=== PATIENT | male | born 1945 | race Caucasian/White ===

== ENCOUNTER 2017-10-18 17:31 | Inpatient (IN) | payer MEDICARE ==
[~2017-10-18] VITALS: Ht 185.4 cm; Wt 82.0 kg
[~2017-10-18 17:31] MED LIST: CIPRO500 MG PO; DOXYCYCL HYC100 MG PO; ECHINACEA80 MG PO; GLUCOS/CHOND1 TAB; LORTAB 7.5 PO; MUCINEX600 MG PO; MULT1 OR; PREDNISONE20 MG PO; PROAIR HFA IN; SAW PALMETTO PO; VIT C
[2017-10-18 18:23] LABS: HEMOGLOBIN 14.5 g/dl (14.0-18.0); IMMATURE GRANULOCYTES 0.5 % (0.0-1.0); MEAN CELL VOLUME 97.7 fL CALC (80.0-100.0); MEAN CORPUSCULAR HGB CONC 33.7 g/L CALC (32.0-36.0); NEUT# 8.13 thou/uL (1.82-7.42); RED BLOOD COUNT 4.4 mill/uL (4.70-6.10); RED CELL DISTRI WIDTH 12.3 % (11.5-15.5)
[2017-10-18 18:43] LABS: PROTHROMBIN TIME 10.7 SECONDS (9.0-12.5)
[2017-10-18 19:02] LABS: ALKALINE PHOSPHATASE 75 u/l (38-126); ANION GAP 19 (6-22 (CALC)); BILIRUBIN, TOTAL 1.1 mg/dL (0.0-1.4); BUN 23 mg/dL (8-23); BUN/CREATININE RATIO 16 (12-20 (CALC)); CALCIUM 9.6 mg/dL (8.4-10.2); CARBON DIOXIDE 20 mmol/l (22-30); CHLORIDE 109 mmol/l (95-108); CREATININE 1.4 mg/dL (0.7-1.3); GFR 50 ML/MIN (>=60 (CALC)); GFR FOR AFR.AMER. > 60 ML/MIN (>=60 (CALC)); GLUCOSE 118 mg/dL (82-115); POTASSIUM 4.3 mmol/l (3.5-5.1); SGOT/AST 28 u/l (19-48); SGPT/ALT 27 u/l (11-66); SODIUM 144 mmol/l (137-146); TOTAL PROTEIN 6.2 g/dL (6.3-8.2)
[2017-10-18 19:11] LABS: MYOGLOBIN 145 ng/mL (0 - 121)
[2017-10-18 22:00] VITALS: BP 115/71
[2017-10-18 22:15] VITALS: BP 98/68
[2017-10-18 22:30] VITALS: BP 106/68
[2017-10-18 22:45] VITALS: BP 101/66
[2017-10-18 23:00] VITALS: BP 102/66
[2017-10-18 23:30] VITALS: BP 82/46
[2017-10-19] VITALS (10 sets, daily range): BP systolic 70–97; BP diastolic 48–69
[2017-10-19 05:32] LABS: HEMATOCRIT 38.2 % (39.0-50.0); HEMOGLOBIN 12.9 g/dl (14.0-18.0); MEAN CELL VOLUME 97.9 fL CALC (80.0-100.0); MEAN CORPUSCULAR HGB 33.1 pG CALC (26.0-32.0); MEAN CORPUSCULAR HGB CONC 33.8 g/L CALC (32.0-36.0); RED BLOOD COUNT 3.9 mill/uL (4.70-6.10); RED CELL DISTRI WIDTH 12.5 % (11.5-15.5)
[2017-10-19 05:51] LABS: CHOLESTEROL HDL RATIO 2.8 (<4.4 (CALC))
[2017-10-19 05:52] LABS: ANION GAP 10 (6-22 (CALC)); BUN 21 mg/dL (8-23); BUN/CREATININE RATIO 18 (12-20 (CALC)); CALCIUM 8.5 mg/dL (8.4-10.2); CARBON DIOXIDE 27 mmol/l (22-30); CHLORIDE 111 mmol/l (95-108); CREATININE 1.2 mg/dL (0.7-1.3); GFR 60 ML/MIN (>=60 (CALC)); GFR FOR AFR.AMER. > 60 ML/MIN (>=60 (CALC)); GLUCOSE 90 mg/dL (82-115); MAGNESIUM 1.9 mg/dL (1.6-2.3); POTASSIUM 4.4 mmol/l (3.5-5.1); SODIUM 143 mmol/l (137-146)
[2017-10-19] MEDS ORDERED: ELIQUIS5 MG PO (09:00)
[2017-10-19] MEDS ORDERED: AMIODARONE200 MG PO (09:00)
== END 2017-10-19 09:20 | disposition home or self-care (01) | DRG 310 ==
LOC: ED 17:31 → ED-I 20:52 → ED 21:09 → MS2 21:10 → ICU 21:35
PROVIDERS: Family Medicine; ADMIT Internal Medicine; ATTEND Internal Medicine
DX: I48.91 Unspecified atrial fibrillation (principal); J44.9 Chronic obstructive pulmonary disease, unspecified; G47.33 Obstructive sleep apnea (adult) (pediatric); F17.210 Nicotine dependence, cigarettes, uncomplicated
CPT/HCPCS: J0282; J1650

== ENCOUNTER 2021-11-10 12:27 | Emergency (ER) | payer MEDICARE ==
[~2021-11-10] VITALS: Ht 185.4 cm; Wt 84.0 kg
[~2021-11-10 12:27] MED LIST changes: +AMIODARONE200 MG PO; +ELIQUIS5 MG PO
[2021-11-10] MEDS ORDERED: KEFLEX500 MG PO (14:49)
[2021-11-10 15:12] VITALS: BP 124/86
== END 2021-11-10 15:12 | disposition home or self-care (01) ==
LOC: ED 12:27
PROC: 0HQGXZZ Repair Left Hand Skin, External Approach (ICD-10-PCS; principal; 2021-11-10)
DX: S61.012A Laceration without foreign body of left thumb without damage to nail, initial encounter (principal); W27.0XXA Contact with workbench tool, initial encounter; Y93.89 Activity, other specified; Y92.009 Unspecified place in unspecified non-institutional (private) residence as the place of occurrence of the external cause